=== PATIENT | male | born 1995 | race Caucasian/White ===

== ENCOUNTER 2025-03-20 15:30 | Outpatient (RCR) | payer OTHER, SELFPAY ==
--- NOTE | 2025-02-14 16:12 | HP.OTEVAL ---
Patient's Visit Information Visit Information Visit Information: JOVANNY MCGEE is a 29 year old M, referred to Occupational Therapy by TOD Guallpa, with a diagnosis of right wrist sprain. Date of Evaluation: 02/14/25 Occupational Therapist: KALIE Roger/Jose Elias, CHT Subjective Subjective: This 29 year old male was seen for OT eval with dx of right strain of muscle, fascia and tendon of wrist - with paresthesia of skin. pt states this has been slowly coming on but Wednesday02/11/25 pt states his wrist was even swollen. pt states he was trying to perform his job left handed. pt was sent to the [facility] fore evaluation. pt is right handed pt works [employer] - lift requirement 40#. 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 105# with pain at release left 115# Lateral Pinch: right 12# left 16# Tripod Pinch: right 16# left 20# Strength Comments: feels ok with resistive testing but currently on prednisone Sensation Thumb: right 2.83 left 2.83 interpretation normal sensation Index: right 2.83 left 2.83 interpretation normal sensation Middle: right 2.83 left 2.83 interpretation normal sensation Ring: right 2.83 left 2.83 interpretation normal sensation Little: right 2.83 left 2.83 interpretation normal sensation Sensation Comments: normal sensation Quick DASH-Disab of Arm,Shoulder& Hand Quick DASH Score: 43.3325 Goals Goal:: pt will demo a increase in right rn transitional strength by 15# to return to work tasks at PLOF by d/c pt will demo a increase in lateral and tripod pinch strength by 4# to increase pts ind. with daily and work tasks to IND level by d/c Goal:: pt will report no pain greater than 1/10 with use of right UE with work tasks without brace by d.c Goal:: pt will demo understanding of work ergo to protect lig. tendon from injury by end of 6th visit Goal:: Pt will demo understanding of using supportive bracing 80% of workday/ADLS to decrease stress on tendon origin to allow healing and decrease pain by end of 2nd session. Rehabilitation General Assessment: pt demo painful right dominate wrist with use of right UE with work and other daily tasks. pt would benefit from skilled OT services 2-3x week for 12 approved OT sessions to decrease pain, ed. on work ergo and lifting precautions to assist pt to return to pts PLOF. pt demo understanding and agree to POC. Rehabilitation Potential: Good Anticipated Interventions Anticipated Interventions: A/AAROM/PROM, Triggerpoint Release, Modalities, Joint Protection/Energy Conservation, Ergonomic Education, Education re assistive Equipment, Education re Diagnosis and Home Program Visit Plan Frequency: 2-3x /Week Duration: 4 Weeks General Plan: work ergo joint protection for wrist/ digits nerve glide wrist stabilization ex. Ice PRN TEXT: Thank you for the opportunity to evaluate your patient. For Medicare and Medicare HMO plans, please review the plan of care and approve it. It will need to be FAXED BACK to us at [phone] for Medicare purposes. Please let me know if there are questions or concerns regarding this plan of care. Physician Signature: Date:
--- NOTE | 2025-03-20 16:03 | HP.OTDCSUM ---
Discharge Summary D/C Summary: It has been my pleasure to treat JOVANNY MCGEE under orders from TOD Guallpa, for the diagnosis of right wrist sprain for a total of 10 visit(s). Please see the following information for a summary of their discharge status. 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 with daily and work tasks to IND level by d/c (goal met) Goal:: pt will report no pain greater than 1/10 with use of right UE with work tasks without brace by d.c ( goal met) Goal:: pt will demo understanding of work ergo to protect lig. tendon from injury by end of 6th visit goal met Goal:: Pt will demo understanding of using supportive bracing 80% of workday/ADLS to decrease stress on tendon origin to allow healing and decrease pain by end of 2nd session. goal met Plan Plan: D/C D/C Information Discharge Comments: pt was seen for 09/02 session. pt states he feels his symptoms have resolved. pt has met OT goals. pt reports he is ready for d/c. pt will cont. to use wrist ergo and wrist support as needed. pt agrees with d/c d/c sentence: If there are questions or concerns regarding this patient's occupational therapy, please fell free to call me at [phone]. Thank you for the referral of this patient. Sincerely, Daylin Fernandez, OTR/L, CHT
--- NOTE | 2025-06-20 14:27 | HP.OTDCSUM ---
Discharge Summary D/C Summary: It has been my pleasure to treat JOVANNY MCGEE under orders from TOD Guallpa, for the diagnosis of right wrist sprain for a total of 10 visit(s). Please see the following information for a summary of their discharge status. 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 with daily and work tasks to IND level by d/c (goal met) Goal:: pt will report no pain greater than 1/10 with use of right UE with work tasks without brace by d.c ( goal met) Goal:: pt will demo understanding of work ergo to protect lig. tendon from injury by end of 6th visit goal met Goal:: Pt will demo understanding of using supportive bracing 80% of workday/ADLS to decrease stress on tendon origin to allow healing and decrease pain by end of 2nd session. goal met Plan Plan: D/C D/C Information Discharge Comments: pt was seen for 09/02 session. pt states he feels his symptoms have resolved. pt has met OT goals. pt reports he is ready for d/c. pt will cont. to use wrist ergo and wrist support as needed. pt agrees with d/c d/c sentence: If there are questions or concerns regarding this patient's occupational therapy, please fell free to call me at [phone]. Thank you for the referral of this patient. Sincerely, Daylin Fernandez, OTR/L, CHT
== END 2025-03-20 19:00 | disposition home or self-care (01) ==
LOC: OT 15:30
PROVIDERS: Referring Provider Physician Assistant; Visit Provider Physician Assistant
DX: S66.911D Strain of unspecified muscle, fascia and tendon at wrist and hand level, right hand, subsequent encounter (principal); R20.2 Paresthesia of skin
CPT/HCPCS: 97035; 97110; 97140; 97166; 97530